=== PATIENT | female | born 1940 | race Caucasian/White ===

== ENCOUNTER 2017-06-08 15:44 | Inpatient (IN) | payer OTHER, MEDICARE ==
--- NOTE | 2017-06-08 16:36 | EDPHY ---
HPI/HX/ROS/PE/MDM Narrative: CHIEF COMPLAINT: Leg weakness HISTORY OF PRESENT ILLNESS: The patient is a 76 y/o female with a history of Parkinson's Disease complaining of leg weakness onset today after lunch. Yesterday, she was at Physical therapy and had a lower blood pressure than normal. At this time she did feel dizzy but denies fainting. After getting up from chair, she was unable to walk, stating her legs were too tired and weak. "Like they were stuck to the floor". She normally has difficulty standing up, which has been worsening this past week, but typically, when she is standing, she is then able to walk and ambulates well. It has also been more difficult getting dressed this past week, primarily when bending over to put on her pants and lift her legs. Denies falling or recent injury. No complaints of dehydration, vomiting, or diarrhea. She has also had intermittent burning when urinating. Several years ago she had a UTI with some similar symptoms. Denies history of cardiac stents, CABG, CHF. Followed by Dr. Lantigua, neurologist, at [facility]. No fever, chills, chest pain, shortness of breath, palpitations, vomiting, diarrhea, headache. No change in her Parkinson's medications. REVIEW OF SYSTEMS: Aside from elements discussed in the HPI, a comprehensive 10-point review of systems was reviewed and is negative. PAST MEDICAL HISTORY: Parkinson's disease (2016), [place], hysterectomy, hypertension , bulging vertebral disc, frequent UTI SOCIAL HISTORY: Daughter at bedside, lives in [place], retired VITAL SIGNS: Reviewed by me GENERAL: Generalized tremor in hands and lower extremities, well-developed, well -nourished, resting comfortably in no respiratory distress. HEENT: Atraumatic. Eyes: No icterus, no injection. Mouth: moist mucous membranes. No erythema or lesions. Neck: supple with no adenopathy. LUNGS: Clear to auscultation bilaterally, no wheezes, rhonchi or rales. CARDIAC: Regular rate and rhythm, no rubs, murmurs or gallops. ABDOMEN: Soft, mildly overweight, nontender, nondistended, bowel sounds normal. BACK: No CVA tenderness. EXTREMITIES: Great difficulty with hip flexion bilaterally, left greater than right, plantar and dorsiflexion are good. No trauma. No pitting edema. Range of motion is normal throughout. NEURO: Alert and oriented, cranial nerves II through XII are intact. Strength in the upper extremities is normal. Weakness as described above. Sensation intact to light touch. SKIN: Warm and dry, no rash. PSYCHIATRIC: Normal mentation, no agitation. Portions of this note were transcribed by a medical assistant cardiology. I personally performed a history, physical exam, medical decision making, and confirmed accuracy of information the transcribed note. ED Course: The patient is a 76 y/o female with a history of Parkinson's Disease presenting with leg weakness onset today after lunch. On exam she has great difficulty with hip flexion bilaterally, left greater than right, her plantar and dorsiflexion are good. Her abdomen is benign and her heart and lungs are regular. Labs, UA, EKG ordered. 171: 12-LEAD EKG: Please see the full report in [facility]. My interpretation: Sinus rhythm with a rate of 94 181: Reassessed patient and discussed laboratory evaluation, UA and EKG findings. The discussed the patient's history of bulging disc in the back more extensively with the family. It appears it has been quite sometime since she had any imaging studies done. Patient does report occasional right-sided low back discomfort for which she sees physical therapy. There was no significant change in her pain over the last several weeks. We will proceed with a CT scan of her lumbar spine to evaluate for acute findings which may have resulted in the patient's symptoms. Patient reports that she feels that her mobility has been significantly diminished in the last 3 days. She is concerned regarding a fall as is her family. Patient will be admitted to the hospitalist service for further observation, gentle hydration, physical therapy evaluation, and other needs as identified. 181: Consulted with hospitalist service, Dr. Beverly accepts admission of this patient. MDM: Differential diagnosis of the patient's weakness was considered including but not limited to electrolyte abnormality, anemia, cardiac ischemia, CVA, spinal cord abnormality, and infectious causes. - Data Points Imaging Results: Imaging Impressions Lumbar Spine CT 06/08/17 18:13 Impression: 1. Mild levoscoliosis lower lumbar spine with associated degenerative disk disease and neuroforaminal stenoses as detailed above. 2. Stimulator electrode passes through the right S3 neural foramen from posterior through the anterior aspect. If symptoms worsen, additional imaging may be necessary. Findings discussed with Randa Barrow MD at 18:59 hour, 06/08/2017. Imaging: Discussed imaging studies w/ supervisor reactor fueling Radiologist Laboratory Results: Laboratory Results 06/08/17 16:45 06/08/17 16:45 06/08/17 06/08/17 06/08/17 17:10 16:45 16:45 WBC 6.73 10^3/uL 10^3/uL (3.80-9.50) RBC 4.00 10^6/uL L 10^6/uL (4.18-5.33) Hgb 13.0 g/dL g/dL (12.6-16.3) Hct 38.5 % % (38.0-47.0) MCV 96.3 fL fL (81.5-99.8) MCH 32.5 pg pg (27.9-34.1) MCHC 33.8 g/dL g/dL (32.4-36.7) RDW 12.9 % % (11.5-15.2) Plt Count 171 10^3/uL 10^3/uL (150-400) MPV 10.5 fL fL (8.7-11.7) Neut % (Auto) 62.1 % % (39.3-74.2) Lymph % (Auto) 30.0 % % (15.0-45.0) [place] % (Auto) 7.4 % % (4.5-13.0) Eos % (Auto) 0.0 % L % (0.6-7.6) Baso % (Auto) 0.4 % % (0.3-1.7) Nucleat RBC Rel Count 0.0 % % (0.0-0.2) Absolute Neuts (auto) 4.17 10^3/uL 10^3/uL (1.70-6.50) Absolute Lymphs (auto) 2.02 10^3/uL 10^3/uL (1.00-3.00) Absolute Monos (auto) 0.50 10^3/uL 10^3/uL (0.30-0.80) Absolute Eos (auto) 0.00 10^3/uL L 10^3/uL (0.03-0.40) Absolute Basos (auto) 0.03 10^3/uL 10^3/uL (0.02-0.10) Absolute Nucleated RBC 0.00 10^3/uL 10^3/uL (0-0.01) Immature Gran % 0.1 % % (0.0-1.1) Immature Gran # 0.01 10^3/uL 10^3/uL (0.00-0.10) Sodium 139 mEq/L mEq/L (135-145) Potassium 4.6 mEq/L mEq/L (3.5-5.2) Chloride 106 mEq/L mEq/L (97-110) Carbon Dioxide 25 mEq/l mEq/l (22-31) Anion Gap 8 mEq/L mEq/L (8-16) BUN 29 mg/dL H mg/dL (7-23) Creatinine 0.9 mg/dL mg/dL (0.6-1.0) Estimated GFR > 60 Glucose 111 mg/dL H mg/dL (70-100) Calcium 9.4 mg/dL mg/dL (8.5-10.4) Total Bilirubin 0.6 mg/dL mg/dL (0.1-1.4) Conjugated Bilirubin 0.5 mg/dL mg/dL (0.0-0.5) Unconjugated Bilirubin 0.1 mg/dL mg/dL (0.0-1.1) AST 18 IU/L IU/L (14-46) ALT 20 IU/L IU/L (9-52) Alkaline Phosphatase 55 IU/L IU/L (38-126) Troponin I < 0.012 ng/mL ng/mL (0.000-0.034) Total Protein 6.4 g/dL g/dL (6.3-8.2) Albumin 3.7 g/dL g/dL (3.5-5.0) Lipase 77 IU/L IU/L (23-300) Urine Color PALE YELLOW Urine Appearance CLEAR Urine pH 6.0 (5.0-7.5) Ur Specific [place] 1.009 (1.002-1.030) Urine Protein NEGATIVE (NEGATIVE) Urine Ketones NEGATIVE (NEGATIVE) Urine Blood NEGATIVE (NEGATIVE) Urine Nitrate NEGATIVE (NEGATIVE) Urine Bilirubin NEGATIVE (NEGATIVE) Urine Urobilinogen NEGATIVE EU EU (0.2-1.0) Ur Leukocyte Esterase NEGATIVE (NEGATIVE) Urine RBC 1-3 /hpf /hpf (0-3) Urine WBC 1-3 /hpf /hpf (0-3) Ur Epithelial Cells TRACE /lpf /lpf (NONE-1+) Urine Mucus TRACE /lpf /lpf (NONE-1+) Urine Glucose NEGATIVE (NEGATIVE) Medications Given: Aspirin Buffered (Aspirin Ec) 81 mg PO HS EDWARDO Stop: 12/05/17 20:59 Last Admin: 06/08/17 20:45 Dose: 81 mg Carbidopa/Levodopa (Sinemet Cr) 1 tab PO TID@, EDWARDO Stop: 12/05/17 20:59 Last Admin: 06/08/17 20:45 Dose: 1 tab Sodium Chloride (Ns) 1,000 mls @ 125 mls/hr IV CONT EDWARDO Stop: 06/09/17 03:44 Last Admin: 06/08/17 20:47 Dose: 1,000 mls Discontinued Medications Sodium Chloride (Ns) 500 mls @ 1,000 mls/hr IV EDNOW ONE PRN Reason: Protocol Stop: 06/08/17 18:39 Last Admin: 06/08/17 19:01 Dose: 500 mls General Time Seen by Provider: 06/08/17 16:32 Initial Vital Signs: Initial Vital Signs Temperature (C) 37.1 C 06/08/17 15:58 Heart Rate 96 06/08/17 15:58 Respiratory Rate 16 06/08/17 15:58 Blood Pressure 132/69 H 06/08/17 15:58 O2 Sat (%) 93 06/08/17 15:58 O2 Delivery Mode Room Air Allergies/Adverse Reactions: Penicillins Allergy (Intermediate, Verified 06/08/17 19:17) Rash Home Medications: Medication Instructions Recorded Acetaminophen/Diphenhydramine 1 tab PO HS PRN 06/08/17 [Acetaminophen-Diphenhyd 500-25] Aspirin EC [Aspirin EC 81 mg (*)] 81 mg PO HS 06/08/17 Carbidopa/Levo Cr 25/100Mg 1 tab PO TID@06/08/17 [Sinemet CR 25/100 MG (*)] Herbals/Supplements -Info Only 1 tab PO DAILY 06/08/17 Multivitamins [Multivitamin (*)] 1 tab PO DAILY 06/08/17 [place]-3 Fatty Acids [Fish Oil 1000 1,000 mg PO DAILY 04/26/18 mg (*)] Simvastatin [Zocor] 20 mg PO DAILY 06/08/17 Departure - Departure Disposition: [facility] Inpatient Acute Clinical Impression: Weakness, Inability to walk Condition: Fair Report Scribed for: Randa Barrow Report Scribed by: Angelika Elmore Date of Report: 06/08/17 Time of Report: 16:36
[2017-06-08 17:01] LABS: PLATELET COUNT 171 10^3/uL (150-400)
--- NOTE | 2017-06-08 17:22 | CPEKG ---
Heart Rate: 94 RR Interval: 638 P-R Interval: 180 QRSD Interval: 106 QT Interval: 372 QTC Interval: 466 P Coden: 49 QRS Coden: -49 T Wave Coden: 68 EKG Severity - ABNORMAL ECG - EKG Impression: SINUS RHYTHM EKG Impression: PROBABLE LEFT ATRIAL ABNORMALITY EKG Impression: LEFT ANTERIOR FASCICULAR BLOCK EKG Impression: LEFT VENTRICULAR HYPERTROPHY Electronically Signed By: Randa Barrow 08-Jun-2017 21:00:40
[2017-06-08] MEDS ORDERED: NS 500 ML IV ONE (18:10)
[2017-06-08] MEDS ORDERED: ONDANSETRON 4 MG/2 ML VIAL IVP PRN (19:08)
[2017-06-08] MEDS ORDERED: ONDANSETRON DISINTEGRATING 4 MG TAB PO PRN (19:08)
[2017-06-08] MEDS ORDERED: ACETAMINOPHEN 325 MG TAB PO PRN (19:08)
[2017-06-08] MEDS ORDERED: ACETAMN/DIPHENHYDRAMINE 500/25MG TAB PO PRN (19:25)
[2017-06-08] MEDS ORDERED: NS 1,000 ML IV SCH (19:45)
--- NOTE | 2017-06-08 20:12 | GHP ---
[f rep st] HISTORY AND PHYSICAL DATE OF ADMISSION: 06/08/2017 HISTORY OF PRESENT ILLNESS: The patient is a pleasant 76-year-old female with history of Parkinson's , who presented with weakness. She had been feeling progressively weak over the last week. She live s in [facility]. She gets physical therapy a few times a week, which she actively participates in. Today, she went down for lunch and had a normal lunch of meatloaf and ice cream . Did not ove r-eat was simply unable to get up. Her legs were weak so they took her upstairs in a wheelchair, whi ch she does not typically require. Then her daughter heard about it and brought her into the emergen cy department. When I speak with the patient, she is actually returning to her room from the bathroom and she is usi ng a walker with a typical shuffling parkinsonian gait. She is alert and pleasant and describes real ly no recent symptoms. She has been eating and drinking well, has not had nausea, vomiting, and diar pro. Has not had cough, has not had sputum. Has not had fever, chills, urgency, frequency, dysuria . She has had no weight loss. She does notice lower extremity edema and she does not lie flat, but this is longstanding. The lower extremity edema sounds like it has been getting a bit worse. Her Pa lida's meds are carbidopa-levodopa controlled release and she takes either 2 or 3 per day. She has not had fever, chills. She did not have alcohol at lunch today. REVIEW OF SYSTEMS: Complete 10-point review of systems conducted, negative except as noted in the HP I. PAST MEDICAL HISTORY: Parkinson's, hypertension, hyperlipidemia, hypothyroidism. SOCIAL HISTORY: Lives in [facility]. Originally from [place]. Minimal alcohol. No tobacco . FAMILY HISTORY: Her daughter and son are at the bedside and healthy. ALLERGIES: Penicillins. HOME MEDICATIONS: Carbidopa-levodopa, simvastatin, fish oil, multivitamin, aspirin, Tylenol PM. PHYSICAL EXAM: PRESENTING VITALS: Temp 132/69, pulse 96, breathing 16 times a minute, 93% on room a ir, afebrile at 37.1. GENERAL: No acute distress. HEENT: Sclerae are anicteric. Oropharynx is cl ear. Mucous membranes are moist. NECK: Supple. No lymphadenopathy or JVD. LUNGS: Clear to auscu ltation bilaterally. HEART: Is S1, S2. ABDOMEN: Soft, nontender, nondistended. LOWER EXTREMITIES : Show 1+ edema bilaterally that is nonpitting. Calves are nontender. SKIN: Without rash. NEUROL OGIC: Notable for moderate pill-rolling tremor. LABS: White count 6, hematocrit 38, platelets are 171. Sodium 139, potassium 4.6, chloride 106, bic arb 25, BUN 29, creatinine 0.9, glucose 111. BUN is a bit high for her. LFTs normal. Troponin less than 0.012. Urinalysis negative. EKG interpreted by me shows sinus at 94 with left axis deviation, left anterior fascicular block. No ST or T-wave changes. I discussed the case with Dr. Randa thomas. ASSESSMENT AND PLAN: This is a 76-year-old female with Parkinson's, presents with generalized weakne ss. 1. Weakness. There is no obvious cause. She has been volume depleted, so give her a liter of intra venous fluids, I would say this is on the basis of her modestly elevated BUN. 2. Reasonable workup was done in the emergency department. I will complete it with blood cultures, chest x-ray. It may be that she just has progressive parkinsonism and is presenting this week. 3. Will have Physical Therapy and Occupational Therapy see her. Continue her medications. 4. Parkinson's. I think that her medication dose is probably appropriate as her tremor is relativel y under control. 5. Lower extremity edema. This may be secondary to Parkinson's but I will go ahead and check an ech ocardiogram, especially in light of her weakness. She does not have an aortic stenosis murmur. 6. Hyperlipidemia. Continue her statin. 7. Hypothyroidism. Check a TSH. Continue her levothyroxine. 8. Prophylaxis. Low molecular heparin. 9. Disposition. Inpatient, Physical Therapy/Occupational Therapy. /[id number]/MODL
[2017-06-08] MEDS: CARBIDOPA/LEVO CR 25 MG/100 MG TAB PO SCH (20:45)
[2017-06-08] MEDS ORDERED: ASPIRIN EC 81 MG TAB PO SCH (21:00)
[2017-06-09] MEDS: CARBIDOPA/LEVO CR 25 MG/100 MG TAB PO SCH (03:01)
[2017-06-09] MEDS ORDERED: MULTIVITAMINS 1 EACH TAB PO SCH (09:00)
[2017-06-09] MEDS ORDERED: OMEGA-3 FATTY ACIDS 1,000 MG CAP PO SCH (09:00)
[2017-06-09] MEDS ORDERED: Herbals/Supplements -Info Only PO SCH (09:00)
[2017-06-09] MEDS ORDERED: ENOXAPARIN 40 MG/0.4 ML SYR SC SCH (09:00)
[2017-06-09] MEDS ORDERED: ATORVASTATIN CALCIUM 10 MG TAB PO SCH (09:00)
[2017-06-09 10:57] VITALS: BP 116/65
--- NOTE | 2017-06-09 12:02 | ASMTCMCOM ---
CM Note CM Note Notes: Spoke w/pt and dtr re; dc poc. Pt lives at [facility], participates in out patient therapies. PT/OT recommend homecare, pt and family prefer to continue with out pt therapies already set up with [facility]. Hospitalist will write RX for therapies, pt will dc home w/supportive dtr, when medically stable. CM available for any changes. DC Plan: Independent + out pt PT/OT Date Signed: 06/09/2017 12:01 PM Electronically Signed By:Dary Crawford RN
--- NOTE | 2017-06-09 12:05 | ASMTLACE ---
LACE Length of stay for Answers: 1 day current admission Acuity / Level of Answers: Yes Care: Did the patient have an inpatient admission? Comorbidities - select Answers: Previous myocardial all that apply infarction Other Notes: Parkinson's disease, HT N # of Emergency department Answers: 1-2 visits in the last 6 months Score: 7 Date Signed: 06/09/2017 12:04 PM Electronically Signed By:Dary Crawford RN
--- NOTE | 2017-06-09 12:05 | PDDCSUM ---
Discharge Summary Discharge Summary: Dates of service 06/08-06/09/17 Consultations: neurology Procedures performed: Justine hernandez spine cT Hospital course by problem: 76 yo F with hx of PD presenting with weakness and volume depletion # weakness: in the setting of PD and e/o volume depletion on arrival, significantly improved and ready for dc to home # pre renal azotemia: in the setting of volume depletion as above, improved with IVF # PD: has been relatively mild and slowly progressive, appreciate neuro consult , some of her sxs may be exacerbated by her inconsistency in timing of her meds , patient plans to f/u with her neurologist after dc to review her medication use DC home f/u with PCP/neurology Dc in < 48 hours as patient improved more quickly than anticipated, anticipated > 48 hour stay due to her multiple comorbidities > 35 min spent in dc more than half in coordination of care
--- NOTE | 2017-06-09 12:32 | ECHO ---
[email or web address] [address] [address] Main: [phone] Fax: Transthoracic Echocardiogram Name: LÓPEZ SANDERSON MR#: [id number] Study Date: 06/09/2017 Study Time: 11:09 AM Date of : 1940 Age: 76 year(s) Height: 167.6 cm (66 in.) Weight: 90.72 kg (200 lb.) BSA: 2 m2 Gender: Female Examination: Echo Indication: WEAKNESS, PARKINSONS, EDEMA Image Quality: Adequate Contrast: Requested by: Dylan Beverly BP: / Heart Rate: Rhythm: Indication: WEAKNESS, PARKINSONS, EDEMA Procedure Staff Seasoning Mixer: Arlene So [facility] Reading Physician: Vince Cortez MD Requesting Provider: Conclusions: Normal size left ventricle. No LV hypertrophy. Normal global systolic LV function. EF is 64 %. Grade 1 diastolic dysfunction (abnormal relaxation). The mitral valve is normal in appearance and function. Mild mitral valve regurgitation is present. The aortic valve is normal in appearance and function. Aortic sclerosis is present. Mild aortic valve regurgitation is present. The tricuspid valve is normal in appearance and function. Mild tricuspid regurgitation is present. Right ventricular systolic pressure measures 29mmHg. There is no pulmonic regurgitation seen. Normal size ascending aorta measuring 3.1 cm. No pericardial effusion. Measurements: Chambers Valvular Assessment AV/MV Valvular Assessment TV/PV Normal Normal Normal Name Value Range Name Value Range Name Value Range Ao Anya (2D): 3.1 cm (1.4 cm-2.6 AV meanP mmHg ( - ) TR Vmax: 2.46 mm/s ( - ) cm) ANA (VTI): 2.0 cm ( - ) TR PGmax: 24 mmHg ( - ) IVSd (2D): 1.1 cm (0.6 cm-1.1 MV E Vmax: 0.66 m/s ( - ) syst. PAP: 29 mmHg ( - ) cm) MV A Vmax: 0.89 m/s ( - ) PV Vmax: 0.88 m/s (0.6 m/s-0.9 LVDd (2D): 4.5 cm (3.9 cm-5.3 MV E/A: 0.74 ( - ) m/s) cm) MV PHT: 0.050 s ( - ) PV PGmax: 3 mmHg ( - ) LVDs (2D): 2.6 cm (2.1 cm-4 cm) MVA (PHT): 4.4 s ( - ) LVPWd (2D): 1.1 cm ( - ) Patient: LÓPEZ SANDERSON Study Date: 06/09/2017 Page 1 of 2 11:09 AM LVOTd 2.0 cm 2.0 cm mm LVEF (BP): 64 % (>=55 %) RVDd(2D): 3.2 cm (1.9 cm-3.8 cmmm) Continued Measurements: Chambers Valvular Assessment AV/MV Valvular Assessment TV/PV Name Value Name Value Name Value LADs: 3.1 cm MV DecTime: 208 m/s CVP (est.): 5 mmHg LADs Lon.0 cm MV E' Septal: 0.09 m/s LA Area: 16.3 cm2 MV E/E' Septal: 7.20 LA Volume: 45 ml MV E/E' Lateral: 8.10 LA Volume Index: 22.5 ml/m2 RA Area: 14.0 cm2 Additional Vessels Name Value Ao Ascendin.1 cm Inferior Vena Cava: 2.1 cm Findings: Left Ventricle: Normal size left ventricle. No LV hypertrophy. Normal global systolic LV function. EF is 64 %. No regional wall motion abnormality. Grade 1 diastolic dysfunction (abnormal relaxation). Right Ventricle: Normal size right ventricle. Left Atrium: The left atrium is normal in size. Right Atrium: The right atrium is normal in size. Mitral Valve: The mitral valve is normal in appearance and function. Mild mitral valve regurgitation is present. No mitral stenosis is present. Aortic Valve: The aortic valve is normal in appearance and function. Aortic sclerosis is present. Mild aortic valve regurgitation is present. No aortic valve stenosis is present. Tricuspid Valve: The tricuspid valve is normal in appearance and function. Mild tricuspid regurgitation is present. The pulmonary artery pressure is normal. Right ventricular systolic pressure measures 29mmHg. Pulmonic Valve: Pulmonary valve not well visualized. There is no pulmonic regurgitation seen. Aorta: The aorta is normal. Normal size aortic root measuring 3.1 cm. Normal size ascending aorta measuring 3.1 cm. IVC: The IVC is normal sized. Pericardium: No pericardial effusion. No pleural effusion. (No Signature Object) Patient: LÓPEZ SANDERSON Study Date: 06/09/2017 Page 2 of 2 11:09 AM [id number]
--- NOTE | 2017-06-09 17:23 | NEUROPROG ---
Assessment: Neurology consult received. Patient discharged prior to my arrival. Objective: Vital Signs Temp Pulse Resp BP Pulse Ox 36.3 C 72 20 116/65 93 06/09/17 10:56 06/09/17 10:56 06/09/17 10:56 06/09/17 10:56 06/09/17 10:56 Laboratory Results 06/09/17 04:39 06/08/17 06/09/17 06/10/17 05:59 05:59 05:59 Intake Total 500 Balance 500 Allergies/Adverse Reactions: Penicillins Allergy (Intermediate, Verified 06/08/17 19:17) Rash
== END 2017-06-09 13:10 | disposition home or self-care (01) | DRG 57 ==
LOC: F3E 20:10
PROVIDERS: ADMIT Internal Medicine; ATTEND Internal Medicine
DX: G20 Parkinson's disease (principal); E86.9 Volume depletion, unspecified; R60.0 Localized edema; E78.5 Hyperlipidemia, unspecified; E03.9 Hypothyroidism, unspecified; I10 Essential (primary) hypertension; I25.2 Old myocardial infarction; R26.2 Difficulty in walking, not elsewhere classified
CPT/HCPCS: 97161-GP; 97165-GO; G0378; G8978-GP-CJ; G8979-GP-CI; G8987-GO-CJ; G8988-GO-CI; J1650

== ENCOUNTER → 2018-02-14 | Outpatient (CLI) | payer OTHER, MEDICARE | LOC: GIMAGING 10:59 | PROVIDERS: ATTEND Nurse Practitioner Family | DX: R05 Cough (principal); R50.9 Fever, unspecified; M47.814 Spondylosis without myelopathy or radiculopathy, thoracic region; M40.204 Unspecified kyphosis, thoracic region | CPT/HCPCS: 71046-PO ==